=== PATIENT | female | born 1955 | race Caucasian/White ===

== ENCOUNTER 2017-02-08 08:43 | Day surgery (SDC) | payer MEDICARE ==
[2017-02-06 13:08] VITALS: BMI 26.4
[2017-02-08 09:37] VITALS: O2SAT 100
[2017-02-08] MEDS ORDERED: Propofol 10 mg/ml Inj (20 ML) ONE ×2 (09:38→10:29)
[2017-02-08] MEDS ORDERED: Midazolam 2 MG/2 ML VIAL ONE (09:38)
[2017-02-08] MEDS ORDERED: Bupivacaine 0.5% Inj(30mL) ONE (09:41)
[2017-02-08] MEDS ORDERED: Lidocaine 2% Inj (20ml) ONE (09:45)
[2017-02-08] MEDS ORDERED: Lidocaine 2% w Epi 1:100,000 Inj IJ ONE (09:45)
[2017-02-08] MEDS ORDERED: Lactated Ringer's 1,000 ML IV ONE (10:10)
[2017-02-08] MEDS ORDERED: HYDROmorphone 0.5 mg/0.5 ml ISec IVP PRN (10:32)
--- NOTE | 2017-02-08 10:41 | PCM.SURG1 ---
Surgeon's Initial Post Op Note - Surgeon's Notes Surgeon: Dr. Barry Internal Affairs Commander: Dr. Matthews Type of Anesthesia: General Endo, IV Sedation, Local Anesthesia Administered By: anahi Pre-Operative Diagnosis: Ganglion Cyst Left hand Operative Findings: same Post-Operative Diagnosis: same Operation Performed: Excision of ganglion cyst Left hand Specimen/Specimens Removed: ganglion cyst Estimated Blood Loss: EBL {In ML}: 2 Blood Products Given: N/A Drains Used: No Drains Post-Op Condition: Good Date of Surgery/Procedure: 02/08/17 Time of Surgery/Procedure: 10:41
[2017-02-08 14:37] VITALS: BP 145/80; PULSE 84; RESP 12; TEMP 98.3
--- NOTE | 2017-02-09 07:05 | OP ---
DATE: 02/08/2017 PREOPERATIVE DIAGNOSIS: Ganglion cyst, left hand. POSTOPERATIVE DIAGNOSIS: Ganglion cyst, left hand. PROCEDURE PERFORMED: FINDINGS: There is a small tender mass located on the ulnar surface of the left hand at the base of the second and third metatarsal. DESCRIPTION OF PROCEDURE: Under local anesthesia, the patient was prepared and draped in usual sterile fashion. Lidocaine 2% with epinephrine was injected around the area. An incision was made along the distal palmar crease and extended down to the subcutaneous tissue. The underlying ganglion cyst was then excised preventing any injury to the underlying structures as tendon and nerve fibers. The mass was then totally excised to come out in a few pieces because of the extension into a wide area. Bleeding was controlled with pressure and the wound was then closed utilizing multiple interrupted sutures of 4-0 nylon. ESTIMATED BLOOD LOSS: About 2 mL. COMPLICATIONS: None. Leighton Barry MD
== END 2017-02-08 15:01 | disposition home or self-care (01) ==
LOC: C.SDS 08:43
PROVIDERS: ATTEND Surgery
DX: M67.442 Ganglion, left hand (principal)
CPT/HCPCS: 26160; 88304; J1170; J2250; J2704; J3010; J7120

== ENCOUNTER 2017-03-20 15:26 | Emergency (ER) | payer MEDICARE ==
[2017-03-20 15:27] VITALS: BMI 26.4
[2017-03-20 15:43] VITALS: TEMP 97.8
[2017-03-20] MEDS ORDERED: Lidocaine 5% Patch TD STA (16:22)
--- NOTE | 2017-03-20 16:23 | C.PDOC ---
History Of Present Illness 61yo female, past medical history of asthma, anxiety, arthritis, chronic back pain, presents to the ED with complaints of back pain, worse through her thoracic and lumbar regions. Patient reports she took 1 percocet for her pain yesterday with no relief; states she has been unable to sleep due to the pain. She denies any abdominal pain, fever, trauma or fall. She offers no other medical complaints. Time Seen by Provider: 03/20/17 16:01 Chief Complaint (Nursing): Back Pain History Per: Patient History/Exam Limitations: no limitations Onset/Duration Of Symptoms: Persistent Current Symptoms Are (Timing): Still Present Quality Of Discomfort: "Pain" Previous Symptoms: Back Pain, Chronic Pain Past Medical History Reviewed: Historical Data, Nursing Documentation, Vital Signs Vital Signs: Last Vital Signs Temp 97.8 F 03/20/17 15:42 Pulse 95 H 03/20/17 15:42 Resp 20 03/20/17 15:42 BP 117/66 03/20/17 15:42 Pulse Ox 100 03/20/17 16:30 - Medical History PMH: Asthma, Back Problems, COPD, Fibromyalgia, Gastritis, Gastrointestinal Ulcer, Hiatal Hernia, HTN, Hypercholesterolemia, Migraine, Pneumonia Denies: Chronic Kidney Disease Surgical History: Endoscopy - [facility] Procedures EXC LES SOFT TISSUE NEC (11/07/13) LOCAL EXCIS BREAST LES (11/07/13) Family History: States: No Known Family Hx, Unknown Family Hx - Social History Hx Tobacco Use: No Hx Alcohol Use: No Hx Substance Use: No - Immunization History Hx Tetanus Toxoid Vaccination: Yes Hx Influenza Vaccination: Yes Hx Pneumococcal Vaccination: Yes Review Of Systems Constitutional: Negative for: Fever Gastrointestinal: Negative for: Abdominal Pain Musculoskeletal: Positive for: Back Pain Physical Exam - Physical Exam Appears: Non-toxic Back: Paraspinal Tenderness Extremity: Normal ROM Neurological/Psych: Oriented x3, Normal Speech, Normal Cognition ED Course And Treatment O2 Sat by Pulse Oximetry: 100 (RA) Pulse Ox Interpretation: Normal Medical Decision Making Medical Decision Making: Impression: 61yo presents for evaluation of worsening chronic back pain Plan: -- Valium PO, flexeril PO and lidoderm patch Disposition Counseled Patient/Family Regarding: Diagnosis - Disposition Referrals: Daniele Aparicio MD [Staff Provider] - Disposition: HOME/ ROUTINE Disposition Time: 17:37 Condition: STABLE Instructions: Chronic Pain (ED) Forms: General Discharge Instructions - POA Present On Arrival: None - Clinical Impression Clinical Impression: Chronic pain - Scribe Statement The provider has reviewed the documentation as recorded by the Zonia Duque Provider Attestation All medical record entries made by the Zonia were at my direction and personally dictated by me. I have reviewed the chart and agree that the record accurately reflects my personal performance of the history, physical exam, medical decision making, and the department course for this patient. I have also personally directed, reviewed, and agree with the discharge instructions and disposition.
[2017-03-20] MEDS ORDERED: Lidocaine 5% Patch TD ONE (16:29)
[2017-03-20 17:55] VITALS: BP 120/68; RESP 18; O2SAT 97
[2017-03-20 17:56] VITALS: PULSE 81
== END 2017-03-20 17:56 | disposition home or self-care (01) ==
LOC: C.ER 15:26
DX: G89.29 Other chronic pain (principal)

== ENCOUNTER 2017-06-27 17:42 | Inpatient (IN) | payer MEDICARE ==
[2017-06-27 17:42] VITALS: BMI 26.4
--- NOTE | 2017-06-27 20:41 | C.PDOC ---
History Of Present Illness 61 year old female with PMHx of asthma presents to the ED c/o bilateral leg swelling, SOB on exertion and states that she feels like she is wheezing. Patient reports her asthma is well controlled and has not had any episodes lately. Patient saw Dr. Aparicio who sent her here for admission. Patient is speaking in full sentences, she denies any CP, dizziness, lightheadedness, nausea, vomit, fever, chills. Time Seen by Provider: 06/27/17 19:59 Chief Complaint (Nursing): Shortness Of Breath History Per: Patient History/Exam Limitations: no limitations Onset/Duration Of Symptoms: Days Current Symptoms Are (Timing): Still Present Quality: "Pain" Exacerbating Factor(s): Exertion Current Respiratory Medications: See Home Med List Associated Symptoms: Ankle/Leg Swelling Reports Recently: Treated By A Physician (Dr. Aparicio) Recent travel outside of the [place]: No Additional History Per: Patient Past Medical History Reviewed: Historical Data, Nursing Documentation, Vital Signs Vital Signs: Last Vital Signs Temp 97.8 F 06/27/17 18:17 Pulse 89 06/27/17 23:37 Resp 18 06/27/17 23:37 BP 130/75 06/27/17 23:37 Pulse Ox 99 06/27/17 23:37 - Medical History PMH: Asthma, Back Problems, COPD, Fibromyalgia, Gastritis, Gastrointestinal Ulcer, Hiatal Hernia, HTN, Hypercholesterolemia, Migraine, Pneumonia Denies: Chronic Kidney Disease Surgical History: Endoscopy - [facility] Procedures EXC LES SOFT TISSUE NEC (11/07/13) LOCAL EXCIS BREAST LES (11/07/13) Family History: States: Unknown Family Hx - Social History Hx Tobacco Use: No Hx Alcohol Use: No Hx Substance Use: No - Immunization History Hx Tetanus Toxoid Vaccination: No Hx Influenza Vaccination: Yes Hx Pneumococcal Vaccination: Yes Review Of Systems Constitutional: Negative for: Fever, Chills Cardiovascular: Negative for: Chest Pain Respiratory: Positive for: SOB with Excertion. Negative for: Cough Gastrointestinal: Negative for: Nausea, Vomiting, Abdominal Pain Musculoskeletal: Positive for: Leg Pain (Swelling) Skin: Negative for: Rash Neurological: Negative for: Weakness, Numbness, Headache Physical Exam - Physical Exam Appears: Non-toxic, No Acute Distress Skin: Normal Color, Warm, Dry Head: Atraumatic, Normacephalic Eye(s): bilateral: Normal Inspection Nose: No Discharge, No Deformity Oral Mucosa: Moist Neck: Normal ROM, Supple Chest: Symmetrical Cardiovascular: Rhythm Regular, No Murmur Respiratory: Wheezing (diffuse inspiratoiry and expiratory ), Other (high pitch squeezing sounds) Gastrointestinal/Abdominal: Soft, No Tenderness, No Guarding, No Rebound Extremity: Normal ROM, No Pedal Edema, No Calf Tenderness, Capillary Refill (< 2 seconds), No Deformity, Swelling (+1 pitting edema) Pulses: Left Dorsalis Pedis: Normal, Right Dorsalis Pedis: Normal Neurological/Psych: Oriented x3, Normal Speech, Normal Cognition Gait: Steady ED Course And Treatment - Laboratory Results Result Diagrams: 06/27/17 21:33 06/27/17 21:33 Lab Interpretation: Abnormal (WBC 11.2 with normal diff, BNP and Troponin normal , BUN 18, Cr 0.6,) ECG: Interpreted By Ct ECG Rhythm: Sinus Rhythm ECG Interpretation: Normal O2 Sat by Pulse Oximetry: 97 (On RA) Pulse Ox Interpretation: Normal - Radiology CXR: Interpreted by Me CXR Interpretation: Yes: Other (bilateral atelectasis vs early infiltrate) - CT Scan/US Chest Other Rad Studies (CT/US): Read By Radiologist, Radiology Report Reviewed CT/US Interpretation: FINDINGS: No aortic aneurysm. No pleural or pericardial effussions. There are small scattered hazy opacities w associated small areas of consolidation in the right mid. lung (images 64-69), the lingula (image 74 through 75) and the left lower lung. A few small mediastinal lymph nodes are noted. No gross abnormalities in the upper abdomen. IMPRESSION: Small scattered hazy opacities/consolidation likely at least partially atelectatic in etiology. Superimposed developing acute infectious/inflammatory process would be possible. Followup is. recommended to ensure complete resolution and exclude underlying developing lesions. Reevaluation Time: 23:20 Reassessment Condition: Improved - Physician Consult Information Time Consulting Physician Contacted: 23:26 Physician Contacted: Daniele Aparicio Outcome Of Conversation: Case referred to Dr Cantu who agrees to accept patient for admission. Medical Decision Making Medical Decision Making: Impression : B/L leg swelling, SOB on exertion Plan: * EKG * Labs * CXR * UA Disposition - Disposition Disposition: HOSPITALIZED Disposition Time: 23:51 Condition: IMPROVED - POA Present On Arrival: None - Clinical Impression Clinical Impression: Asthma exacerbation, Lower respiratory infection (e.g., bronchitis, pneumonia, pneumonitis, pulmonitis) - Scribe Statement The provider has reviewed the documentation as recorded by the Scribe Klaus Nicholson All medical record entries made by the Scribe were at my direction and personally dictated by me. I have reviewed the chart and agree that the record accurately reflects my personal performance of the history, physical exam, medical decision making, and the department course for this patient. I have also personally directed, reviewed, and agree with the discharge instructions and disposition.
[2017-06-27 21:16] LABS: SQUAMOUS EPITHIAL 1 /hpf (0-5); URINE BACTERIA OCC (<OCC); URINE BILIRUBIN NEGATIVE (NEGATIVE); URINE BLOOD NEGATIVE (NEGATIVE); URINE CALCIUM OXALATE CRYSTALS FEW /hpf (<OCC); URINE CLARITY Clear (Clear); URINE COLOR Yellow (YELLOW); URINE GLUCOSE (UA) NORMAL (Normal); URINE LEUKOCYTE ESTERASE 1+ Leu/uL (Negative); URINE NITRATE NEGATIVE (NEGATIVE); URINE PROTEIN NEGATIVE (NEGATIVE)
[2017-06-27 22:01] LABS: CALCIUM 8.7 mg/dl (8.6-10.4); GFR AFRICAN-AMERICAN > 60; GFR NON-AFRICAN AMERICAN > 60
[2017-06-27 22:02] LABS: BASO # 0.1 K/uL (0.0-0.2); BASO % 0.6 % (0.0-2.0); EOS # 0.6 K/uL (0.0-0.7); EOS % 5.2 % (0.0-4.0); LYMPH # 2.9 K/uL (1.0-4.3); LYMPH % 26.1 % (20.0-40.0); MEAN CELL VOLUME 86.7 fL (81.0-99.0); MEAN CORPUSCULAR HEMOGLOBIN 28.1 pg (27.0-31.0); MEAN CORPUSCULAR HGB CONC 32.4 g/dL (33.0-37.0); MEAN PLATELET VOLUME 9.2 fL (7.2-11.7); MONO # 1.1 K/uL (0.0-0.8); MONO % 9.9 % (0.0-10.0); NEUT # 6.5 K/uL (1.8-7.0); NEUT % 58.2 % (50.0-75.0); RBC 3.91 Mil/uL (3.80-5.20); RED CELL DISTRIBUTION WIDTH 16.6 % (11.5-14.5); WHITE BLOOD COUNT 11.2 K/uL (4.8-10.8)
[2017-06-27 22:03] LABS: ALB/GLOB RATIO 1.1 (1.0-2.1); ALBUMIN 3.8 g/dL (3.5-5.0); ALT/SGPT 12 U/L (9-52); AST/SGOT 26 U/L (14-36); BLOOD UREA NITROGEN 18 mg/dL (7-17)
[2017-06-27 22:08] LABS: B-TYPE NATRIURETIC PEPTIDE 61.6 pg/mL (0-900)
--- NOTE | 2017-06-27 23:14 | CT ---
EXAM: CT Chest Without Intravenous Contrast EXAM DATE/TIME: 06/27/2017 9:26 PM CLINICAL HISTORY: 61 years old, female; Signs and symptoms; Shortness of breath; Additional info: SOB with hilar fullness TECHNIQUE: Axial computed tomography images of the chest without intravenous contrast. All CT scans at this facility use one or more dose reduction techniques, viz.: automated exposure control; ma/kV adjustment per patient size (including targeted exams where dose is matched to indication; i.e. head); or iterative reconstruction technique. Coronal and sagittal reformatted images were created and reviewed. COMPARISON: No relevant prior studies available. FINDINGS: No aortic aneurysm. No pleural or pericardial effussions. There are small scattered hazy opacities w associated small areas of consolidation in the right mid lung (images 64-69), the lingula (image 74 through 75) and the left lower lung. A few small mediastinal lymph nodes are noted. No gross abnormalities in the upper abdomen. IMPRESSION: Small scattered hazy opacities/consolidation likely at least partially atelectatic in etiology. Superimposed developing acute infectious/inflammatory process would be possible. Followup is recommended to ensure complete resolution and exclude underlying developing lesions.
[2017-06-28] MEDS ORDERED: Azithromycin 500 MG in Sodium Chloride 0.9% 250 ML IVPB STA (00:14)
[2017-06-28] MEDS ORDERED: Oxycodone/Acetaminophen 5/325 mg Tab PO PRN (00:43)
[2017-06-28] MEDS ORDERED: [UNRECOGNIZED DRUG - OTHER] SC PRN ×2 (00:43→10:59)
[2017-06-28] MEDS ORDERED: Oxycodone/Acetaminophen 5/325 mg Tab ONE (02:25)
[2017-06-28] MEDS ORDERED: Albuterol 0.083% Inhal Sol (2.5 mg/3 mL) UD ONE (02:32)
[2017-06-28] MEDS: Albuterol 0.083% Inhal Sol (2.5 mg/3 mL) UD INH SCH ×4 (02:33→20:20)
[2017-06-28] MEDS ORDERED: Fluticasone-Salmeterol 250-50mcg Diskus IH SCH ×2 (08:00→10:00)
--- NOTE | 2017-06-28 08:48 | RAD ---
Chest x-ray single frontal view History: Shortness of breath. Comparison: 11/14/2014 Findings: Increased markings at the left lung base suggestive for atelectasis. Tortuous ectatic aorta. Heart size normal limits. Degenerative changes in the spine and shoulders. Impression Increased markings at the left lung base suggestive for atelectasis. Tortuous ectatic aorta.
[2017-06-28] MEDS: Enoxaparin 30 mg Syringe SC SCH (09:47)
--- NOTE | 2017-06-28 12:49 | CARD ---
APPROVED REPORT EKG Measurement Heart [id number] <Conclusion> Normal sinus rhythm Normal ECG
--- NOTE | 2017-06-28 17:34 | CP.PCM.CON ---
History of Present Illness - History of Present Illness History of Present Illness: Pt is 61 year old female with PMHx of asthma, chronic back pain, HTN, peptic ulcer, gastritis, hiatal hernia admitted on 06/27/17 for asthma exacerbation and possible lower respiratory infection. Pt reports one week of persistent wheezing , shortness of breath and cough. Symptoms worsened with exertion and change in weather. No improvement with use of rescue inhaler and nebulizer treatments at home. Pt became alarmed when she developed leg swelling, which she never had previously, and was sent to the ED by Dr. Aparicio. Today, is in NAD. SpO2 is 98% on room air. Afebrile. Pt states she is feeling much better after albuterol treatments, however there is still continued wheezing and dry cough. Bilateral leg swelling has improved as well, but not resolved. Pt denies chest pain, hemoptysis, fever and chills. PMHx- Asthma, chronic back pain, HTN, peptic ulcer, gastritis, hiatal hernia PSHx- Rhytidectomy, Bilateral knee surgeries, L elbow surgery Meds: albuterol, advair 2 puffs daily, montelukast 10mg PO daily, percocet 5/ 325 1 tab PO Q6H PRN, Xanax 5mg PRN, Zolpidem 10mg QHS PRN Allergies-acetaminophen, aminophylline, aspirin, lasix, latex, gatifloxacin, levofloxacin, iodine, PCN, sulfa, propoxyphene, seafood. Family Hx: father-renal failure, grandmother- colon cancer 90 years old, aunt- breast cancer at 40 years old Social: Denies tobacco, alcohol and drug use. Hospitalization: States she was treated in the ICU and intubated 20 years ago. Exam: lungs: diffuse expiratory wheeze extremities: bilateral lower extremity swelling R>L A/P: Asthma exacerbation Continue nebulizer treatments Start IV steroid Follow up ABG Follow up Echo 06/27/17 Eosinophil %: 5.2 Possible PNA Start antibiotics 06/27/17 CXR: increased markins at left lung base suggestive for atelectasis. Tortuous ectatic aorta. 06/27/17 CT chest: small scattered hazy opacities/consolidation likely at least partically atelectasis. Superimposed developing acute infeciton/inflammatory process would be possible. follow up recommended 06/27/17 WBC: 11.2 Past Patient History - Past Medical History & Family History Past Medical History?: Yes - Past Social History Smoking Status: Never Smoked - CARDIAC Hx Hypercholesterolemia: Yes Hx Hypertension: Yes - PULMONARY Hx Asthma: Yes Hx Chronic Obstructive Pulmonary Disease (COPD): Yes Hx Pneumonia: Yes - NEUROLOGICAL Hx Migraine: Yes - HEENT Hx HEENT Problems: No - RENAL Hx Chronic Kidney Disease: No - ENDOCRINE/METABOLIC Hx Endocrine Disorders: No - HEMATOLOGICAL/ONCOLOGICAL Hx Blood Disorders: No - INTEGUMENTARY Hx Dermatological Problems: Yes Other/Comment: MULTIPLE LESIONS CHEST AREA. 05/24/15 Ganglion Cyst, left hand. HX: GANGLION CYST LEFT HAND. (from previous triage) - MUSCULOSKELETAL/RHEUMATOLOGICAL Hx Musculoskeletal Disorders: Yes Hx Back Pain: Yes Hx Degenerative Joint Disease: Yes Hx Falls: No Hx Osteoarthritis: Yes (back neck) Other/Comment: HX: DJD-LEFT KNEE. HX: DJD RIGHT KNEE. HX: TENDONITIS LEFT ELBOW - GASTROINTESTINAL Hx Gastritis: Yes - GENITOURINARY/GYNECOLOGICAL Hx Genitourinary Disorders: No - PSYCHIATRIC Hx Substance Use: No - SURGICAL HISTORY Hx Surgeries: Yes Hx Arthroscopy: Yes (left knee) Hx Joint Replacement: Yes (right total) Hx Musculoskeletal Surgery: Yes (HX: SURGERY FOR TENDONITIS LEFT ELBOWleft knee) Hx Orthopedic Surgery: Yes Other/Comment: EXC MASS LEFT CHEST BACK THIGH. HX: LEFT PARTIAL KNEE REPLACEMENT. HX: RIGHT TOTAL KNEE REPLACEMENT - ANESTHESIA Hx Anesthesia: Yes Hx Anesthesia Reactions: No Hx Malignant Hyperthermia: No Has any member of the family had a problem w/ anesthesia?: No Meds Allergies/Adverse Reactions: Allergies Allergy/AdvReac Type Severity Reaction Status Date / Time acetaminophen Allergy Severe RASH Verified 06/27/17 18:20 [From Darvocet-N] aminophylline Allergy Severe HIVES Verified 06/27/17 18:20 aspirin Allergy Severe HIVES Verified 06/27/17 18:20 furosemide Allergy Severe HIVES Verified 06/27/17 18:20 gatifloxacin [From Tequin] Allergy Severe HIVES Verified 06/27/17 18:20 iodine Allergy Severe HIVES Verified 06/27/17 18:20 latex Allergy Severe HIVES Verified 06/27/17 18:20 levofloxacin [From Levaquin] Allergy Severe HIVES Verified 06/27/17 18:20 Penicillins Allergy Severe HIVES Verified 06/27/17 18:20 propoxyphene Allergy Severe RASH Verified 06/27/17 18:20 [From Darvocet-N] Sulfa (Sulfonamide Allergy Severe HIVES Verified 06/27/17 18:20 Antibiotics) SEAFOOD Allergy Severe HIVES Uncoded 03/20/17 16:23 TEQUIN Allergy Severe HIVES Uncoded 03/20/17 16:23 - Medications Medications: Current Medications Albuterol Sulfate (Albuterol 0.083% Inhal Rayna (2.5 Mg/3 Ml) Ud) 2.5 mg INH RQ6 [facility] Last Admin: 06/28/17 13:31 Dose: 2.5 mg Enoxaparin Sodium (Lovenox) 30 mg SC DAILY [facility] Last Admin: 06/28/17 09:47 Dose: 30 mg Montelukast Sodium (Singulair) 10 mg PO DAILY [facility] Last Admin: 06/28/17 09:47 Dose: 10 mg Oxycodone/Acetaminophen (Percocet 5/325 Mg Tab) 1 tab PO Q6 PRN PRN Reason: Pain, moderate (4-7) Stop: 07/01/17 00:44 Last Admin: 06/28/17 02:25 Dose: 1 tab Fluticasone/Salmeterol (Advair Diskus 250/50) 1 puff IH RQ12 [facility] Last Admin: 06/28/17 11:15 Dose: 1 puff Zolpidem Tartrate (Ambien) 5 mg PO HS PRN PRN Reason: Insomnia Results - Vital Signs Recent Vital Signs: Last Vital Signs Temp 97.4 F L 06/28/17 06:00 Pulse 66 06/28/17 06:00 Resp 19 06/28/17 06:00 BP 123/74 06/28/17 06:00 Pulse Ox 98 06/28/17 06:00 - Labs Result Diagrams: 06/27/17 21:33 06/27/17 21:33 Labs: Laboratory Results - last 24 hr 06/27/17 06/27/17 06/27/17 21:00 21:33 21:33 WBC 11.2 H RBC 3.91 Hgb 11.0 Hct 33.9 L MCV 86.7 D MCH 28.1 MCHC 32.4 L RDW 16.6 H Plt Count 391 MPV 9.2 Neut % (Auto) 58.2 Lymph % (Auto) 26.1 [place] % (Auto) 9.9 Eos % (Auto) 5.2 H Baso % (Auto) 0.6 Neut # 6.5 Lymph # 2.9 [place] # 1.1 H Eos # 0.6 Baso # 0.1 Sodium 135 Potassium 4.2 Chloride 102 Carbon Dioxide 27 Anion Gap 9 L BUN 18 H Creatinine 0.6 L Est GFR ( Amer) > 60 Est GFR (Non-Af Amer) > 60 Random Glucose 97 Calcium 8.7 Total Bilirubin 0.7 AST 26 ALT 12 Alkaline Phosphatase 104 Troponin I < 0.0120 NT-Pro-B Natriuret Pep 61.6 Total Protein 7.2 Albumin 3.8 Globulin 3.4 Albumin/Globulin Ratio 1.1 Urine Color Yellow Urine Clarity Clear Urine pH 5.0 Ur Specific [place] 1.025 Urine Protein Negative Urine Glucose (UA) Normal Urine Ketones Negative Urine Blood Negative Urine Nitrate Negative Urine Bilirubin Negative Urine Urobilinogen 2.0 H Ur Leukocyte Esterase 1+ H Urine WBC (Auto) 21 H Urine RBC (Auto) 2 Ur Squamous Epith Cells 1 Calcium Oxalate Crystal Few H Urine Bacteria Occ H
--- NOTE | 2017-06-28 18:16 | CP.PCM.HP ---
History of Present Illness - History of Present Illness History of Present Illness: 61 year old female admitted on 06/27/17 for asthma exacerbation and possible lower respiratory infection. She reports one week of persistent wheezing, shortness of breath and cough as well as leg swelling Admitted to ICU for pneumonia, status asthmaticus possible CHF PMHx- Asthma, chronic back pain, HTN, peptic ulcer, gastritis, hiatal hernia PSHx- Rhytidectomy, Bilateral knee surgeries, L elbow surgery Meds: albuterol, advair 2 puffs daily, montelukast 10mg PO daily, percocet 5/ 325 1 tab PO Q6H PRN, Xanax 5mg PRN, Zolpidem 10mg QHS PRN Allergies-acetaminophen, aminophylline, aspirin, lasix, latex, gatifloxacin, levofloxacin, iodine, PCN, sulfa, propoxyphene, seafood. Family Hx: father-renal failure, grandmother- colon cancer 90 years old, aunt- breast cancer at 40 years old Social: Denies tobacco, alcohol and drug use. Hospitalization: States she was treated in the ICU and intubated 20 years ago. Present on Admission - Present on Admission Any Indicators Present on Admission: No History of DVT/PE: No History of Uncontrolled Diabetes: No Urinary Catheter: No Decubitus Ulcer Present: No History Surgical Site Infection Following: None Review of Systems - Constitutional Constitutional: As Per HPI, Anorexia, Chills. absent: Headache - EENT Eyes: absent: As Per HPI, Blind Spots, Blurred Vision, Change in Vision, Decreased Night Vision, Diplopia, Discharge, Dry Eye, Exophthalmos, Floaters, Irritation, Itchy Eyes, Loss of Peripheral Vision, Pain, Photophobia, Requires Corrective Lenses, Sees Flashes, Spots in Vision, Tunnel Vision, Other Visual Disturbances, Loss of Vision, Other Ears: absent: As Per HPI, Decreased Hearing, Ear Discharge, Ear Pain, Tinnitus, Abnormal Hearing, Disequilibrium, Dizziness, Other Nose/Mouth/Throat: absent: As Per HPI, Epistaxis, Nasal Congestion, Nasal Discharge, Nasal Obstruction, Nasal Trauma, Nose Pain, Post Nasal Drip, Sinus Pain, Sinus Pressure, Bleeding Gums, Change in Voice, Dental Pain, Dry Mouth, Dysphagia, Halitosis, Hoarsness, Lip Swelling, Mouth Lesions, Mouth Pain, Odynophagia, Sore Throat, Throat Swelling, Tongue Swelling, Facial Pain, Neck Pain, Neck Mass, Other - Breasts Breasts: absent: As Per HPI, Change in Shape, Mass, Pain, Nipple Discharge, Nipple Inversion, Skin Changes, Swelling, Other - Cardiovascular Cardiovascular: As Per HPI, Pedal Edema - Respiratory Respiratory: As Per HPI, Cough, Dyspnea. absent: Hemoptysis - Gastrointestinal Gastrointestinal: absent: As Per HPI, Abdominal Pain, Belching, Bloating, Change in Bowel Habits, Change in Stool Character, Coffee Ground Emesis, Constipation, Cramping, Diarrhea, Dyspepsia, Dysphagia, Early Satiety, Excessive Flatus, Fecal Incontinence, Heartburn, Hematemesis, Hematochezia, Loose Stools, Melena, Nausea, Odynophagia, Temesmus, Vomiting, Other - Genitourinary Genitourinary: absent: As Per HPI, Change in Urinary Stream, Difficulty Urinating, Dysuria, Flank Pain, Hematuria, Pyuria, Nocturia, Urinary Incontinence, Urinary Frequency, Urinary Hesitance, Urinary Urgency, Voiding Freq/Small Amts, Freq UTI, Hx Renal/Bladder Calculi, Hx /Renal Surgery, Bladder Distension, Other - Reproductive: Female Reproductive:Female: absent: As Per HPI, Amenorrhea, Amenorrhea/ Control, Currently Menstual, Cycle <21 Days, Cycle >35 Days, Cycle Variable, Menses 1-7 Days, Menses >/= 8 Days, Menses Variable, Cycle > 4 Weeks Between, No Menses for 6 Months, Heavy Menses, Light Menses, Normal Menses, Spotting Between Cycles , S/P Hysterectomy, Menopausal, Post Menopausal, Premenarche, Abnormal Vaginal Bleeding, Dysmenorrhea, Dyspareunia, Genital Lesions, Genital Pruritis, Pelvic Pain, Prolapse Symptoms, Sexual Dysfunction, Vaginal Discharge, Vaginal Dryness , Vaginal Odor, Vaginal Pruritis, Other - Menstruation Menstruation: absent: As Per HPI, Amenorrhea, Amenorrhea/ Control, Currently Menstual, Cycle <21 Days, Cycle >35 Days, Cycle Variable, Menses 1-7 Days, Menses >/= 8 Days, Menses Variable, Cycle > 4 Weeks Between, No Menses for 6 Months, Heavy Menses, Light Menses, Normal Menses, Spotting Between Cycles , S/P Hysterectomy, Menopausal, Post Menopausal, Premenarche, Abnormal Vaginal Bleeding, Dysmenorrhea, Other - Musculoskeletal Musculoskeletal: As Per HPI - Integumentary Integumentary: As Per HPI - Neurological Neurological: absent: As Per HPI, Abnormal Gait, Abnormal Hearing, Abnormal Movements, Abnormal Speech, Behavioral Changes, Burning Sensations, Confusion, Convulsions, Disequilibrium, Dizziness, Numbness, Focal Weakness, Frequent Falls , Headaches, Lack of Coordination, Loss of Vision, Memory Loss, Paresthesias, Radicular Pain, Restless Legs, Sensory Deficit, Syncope, Tingling, Tremor, Vertigo, Weakness, Other Visual Disturbances, Other - Psychiatric Psychiatric: absent: As Per HPI, Abnormal Sleep Pattern, Anhedonia, Anxiety, Auditory Hallucinations, Behavioral Changes, Change in Appetite, Change in Libido, Confusion, Depression, Difficulty Concentrating, Hallucinations, Homicidal Ideation, Hopelessness, Irritability, Memory Loss, Mood Swings, Panic Attacks, Paranoia, Suicidal Ideation, Visual Hallucinations, Tactile Hallucinations, Other - Endocrine Endocrine: absent: As Per HPI, Change in Body Appearance, Change in Libido, Cold Intolorance, Deepening of Voice, Excessive Sweating, Fatigue, Flushing, Heat Intolorance, Increase in Ring/Shoe/Hat Size, Palpitations, Polydipsia, Polyphagia, Polyuria, Other - Hematologic/Lymphatic Hematologic: absent: As Per HPI, Easy Bleeding, Easy Bruising, Lymphadenopathy, Other Past Patient History - Past Medical History & Family History Past Medical History?: Yes - Past Social History Smoking Status: Never Smoked - CARDIAC Hx Hypercholesterolemia: Yes Hx Hypertension: Yes - PULMONARY Hx Asthma: Yes Hx Chronic Obstructive Pulmonary Disease (COPD): Yes Hx Pneumonia: Yes - NEUROLOGICAL Hx Migraine: Yes - HEENT Hx HEENT Problems: No - RENAL Hx Chronic Kidney Disease: No - ENDOCRINE/METABOLIC Hx Endocrine Disorders: No - HEMATOLOGICAL/ONCOLOGICAL Hx Blood Disorders: No - INTEGUMENTARY Hx Dermatological Problems: Yes Other/Comment: MULTIPLE LESIONS CHEST AREA. 05/24/15 Ganglion Cyst, left hand. HX: GANGLION CYST LEFT HAND. (from previous triage) - MUSCULOSKELETAL/RHEUMATOLOGICAL Hx Musculoskeletal Disorders: Yes Hx Back Pain: Yes Hx Degenerative Joint Disease: Yes Hx Falls: No Hx Osteoarthritis: Yes (back neck) Other/Comment: HX: DJD-LEFT KNEE. HX: DJD RIGHT KNEE. HX: TENDONITIS LEFT ELBOW - GASTROINTESTINAL Hx Gastritis: Yes - GENITOURINARY/GYNECOLOGICAL Hx Genitourinary Disorders: No - PSYCHIATRIC Hx Substance Use: No - SURGICAL HISTORY Hx Surgeries: Yes Hx Arthroscopy: Yes (left knee) Hx Joint Replacement: Yes (right total) Hx Musculoskeletal Surgery: Yes (HX: SURGERY FOR TENDONITIS LEFT ELBOWleft knee) Hx Orthopedic Surgery: Yes Other/Comment: EXC MASS LEFT CHEST BACK THIGH. HX: LEFT PARTIAL KNEE REPLACEMENT. HX: RIGHT TOTAL KNEE REPLACEMENT - ANESTHESIA Hx Anesthesia: Yes Hx Anesthesia Reactions: No Hx Malignant Hyperthermia: No Has any member of the family had a problem w/ anesthesia?: No Meds Allergies/Adverse Reactions: Allergies Allergy/AdvReac Type Severity Reaction Status Date / Time acetaminophen Allergy Severe RASH Verified 06/27/17 18:20 [From Darvocet-N] aminophylline Allergy Severe HIVES Verified 06/27/17 18:20 aspirin Allergy Severe HIVES Verified 06/27/17 18:20 furosemide Allergy Severe HIVES Verified 06/27/17 18:20 gatifloxacin [From Tequin] Allergy Severe HIVES Verified 06/27/17 18:20 iodine Allergy Severe HIVES Verified 06/27/17 18:20 latex Allergy Severe HIVES Verified 06/27/17 18:20 levofloxacin [From Levaquin] Allergy Severe HIVES Verified 06/27/17 18:20 Penicillins Allergy Severe HIVES Verified 06/27/17 18:20 propoxyphene Allergy Severe RASH Verified 06/27/17 18:20 [From Darvocet-N] Sulfa (Sulfonamide Allergy Severe HIVES Verified 06/27/17 18:20 Antibiotics) SEAFOOD Allergy Severe HIVES Uncoded 03/20/17 16:23 TEQUIN Allergy Severe HIVES Uncoded 03/20/17 16:23 Physical Exam - Constitutional Appears: No Acute Distress - Head Exam Head Exam: ATRAUMATIC, NORMOCEPHALIC - Eye Exam Eye Exam: PERRL. absent: Scleral icterus - ENT Exam ENT Exam: Mucous Membranes Dry, Normal External Ear Exam - Neck Exam Neck exam: Negative for: Lymphadenopathy - Respiratory Exam Respiratory Exam: Decreased Breath Sounds, Rales, Rhonchi, Wheezes - Cardiovascular Exam Cardiovascular Exam: REGULAR RHYTHM, +S1, +S2 - GI/Abdominal Exam GI & Abdominal Exam: Diminished Bowel Sounds, Soft. absent: Tenderness - Rectal Exam Rectal Exam: Deferred - Exam Exam: NORMAL INSPECTION - Extremities Exam Extremities exam: Positive for: pedal pulses present. Negative for: calf tenderness, pedal edema, tenderness - Back Exam Back exam: absent: CVA tenderness (L), CVA tenderness (R) - Neurological Exam Neurological exam: Alert, CN II-XII Intact, Oriented x3, Reflexes Normal - Psychiatric Exam Psychiatric exam: Normal Mood - Skin Skin Exam: Dry Results - Vital Signs Recent Vital Signs: Last Vital Signs Temp 97.4 F L 06/28/17 06:00 Pulse 66 06/28/17 06:00 Resp 19 06/28/17 06:00 BP 123/74 06/28/17 06:00 Pulse Ox 98 06/28/17 06:00 - Labs Result Diagrams: 06/27/17 21:33 06/27/17 21:33 Labs: Laboratory Results - last 24 hr 06/27/17 06/27/17 06/27/17 21:00 21:33 21:33 WBC 11.2 H RBC 3.91 Hgb 11.0 Hct 33.9 L MCV 86.7 D MCH 28.1 MCHC 32.4 L RDW 16.6 H Plt Count 391 MPV 9.2 Neut % (Auto) 58.2 Lymph % (Auto) 26.1 Ralls % (Auto) 9.9 Eos % (Auto) 5.2 H Baso % (Auto) 0.6 Neut # 6.5 Lymph # 2.9 Ralls # 1.1 H Eos # 0.6 Baso # 0.1 Sodium 135 Potassium 4.2 Chloride 102 Carbon Dioxide 27 Anion Gap 9 L BUN 18 H Creatinine 0.6 L Est GFR ( Amer) > 60 Est GFR (Non-Af Amer) > 60 Random Glucose 97 Calcium 8.7 Total Bilirubin 0.7 AST 26 ALT 12 Alkaline Phosphatase 104 Troponin I < 0.0120 NT-Pro-B Natriuret Pep 61.6 Total Protein 7.2 Albumin 3.8 Globulin 3.4 Albumin/Globulin Ratio 1.1 Urine Color Yellow Urine Clarity Clear Urine pH 5.0 Ur Specific [place] 1.025 Urine Protein Negative Urine Glucose (UA) Normal Urine Ketones Negative Urine Blood Negative Urine Nitrate Negative Urine Bilirubin Negative Urine Urobilinogen 2.0 H Ur Leukocyte Esterase 1+ H Urine WBC (Auto) 21 H Urine RBC (Auto) 2 Ur Squamous Epith Cells 1 Calcium Oxalate Crystal Few H Urine Bacteria Occ H Assessment & Plan (1) Asthma exacerbation Status: Acute (2) Lower respiratory infection (e.g., bronchitis, pneumonia, pneumonitis, pulmonitis) Status: Acute (3) Asthma Status: Acute (4) Cervical radiculopathy Status: Acute (5) Chronic pain Status: Acute - Assessment and Plan (Free Text) Assessment: check cultures cont IV rx Decision To Admit - Pt Status Changed To: Hospital Disposition Of: Inpatient - Admit Certification Admit to Inpatient:: After my assessment, the patient will require hospitalization for at least two midnights. This is because of the severity of symptoms shown, intensity of services needed, and/or the medical risk in this patient being treated as an outpatient. - InPatient: Physician Admission Certification:: pt needs acute care admission - . Bed Request Type: ICU
--- NOTE | 2017-06-28 18:36 | CP.PCM.PN ---
Subjective - Date & Time of Evaluation Date of Evaluation: 06/28/17 Time of Evaluation: 09:00 - Subjective Subjective: still whezing legs swollen no chest pain DR dash on board Objective - Vital Signs/Intake and Output Vital Signs (last 24 hours): Temp Pulse Resp BP Pulse Ox 97.4 F L 66 19 123/74 98 06/28/17 06:00 06/28/17 06:00 06/28/17 06:00 06/28/17 06:00 06/28/17 06:00 - Medications Medications: Current Medications Albuterol Sulfate (Albuterol 0.083% Inhal Rayna (2.5 Mg/3 Ml) Ud) 2.5 mg INH RQ6 [facility] Last Admin: 06/28/17 13:31 Dose: 2.5 mg Enoxaparin Sodium (Lovenox) 30 mg SC DAILY [facility] Last Admin: 06/28/17 09:47 Dose: 30 mg Azithromycin 500 mg/ Sodium (Chloride) 250 mls @ 250 mls/hr IVPB Q24H [facility] Methylprednisolone (Solu-Medrol) 40 mg IVP Q8 [facility] Montelukast Sodium (Singulair) 10 mg PO DAILY [facility] Last Admin: 06/28/17 09:47 Dose: 10 mg Oxycodone/Acetaminophen (Percocet 5/325 Mg Tab) 1 tab PO Q6 PRN PRN Reason: Pain, moderate (4-7) Stop: 07/01/17 00:44 Last Admin: 06/28/17 02:25 Dose: 1 tab Zolpidem Tartrate (Ambien) 5 mg PO HS PRN PRN Reason: Insomnia - Labs Labs: 06/27/17 21:33 06/27/17 21:33 - Constitutional Appears: Non-toxic, Chronically Ill - Head Exam Head Exam: NORMOCEPHALIC - Eye Exam Eye Exam: PERRL - ENT Exam ENT Exam: Mucous Membranes Dry - Neck Exam Neck Exam: absent: Lymphadenopathy - Respiratory Exam Respiratory Exam: Decreased Breath Sounds - Cardiovascular Exam Cardiovascular Exam: REGULAR RHYTHM - GI/Abdominal Exam GI & Abdominal Exam: Distended, Soft - Rectal Exam Rectal Exam: Deferred - Exam Exam: NORMAL INSPECTION Assessment and Plan (1) Asthma exacerbation Status: Acute (2) Lower respiratory infection (e.g., bronchitis, pneumonia, pneumonitis, pulmonitis) Status: Acute (3) Asthma Status: Acute (4) Cervical radiculopathy Status: Acute (5) Chronic pain Status: Acute
[2017-06-28] MEDS: MethylPREDNISolone 40 mg Vial IVP SCH ×2 (18:38→22:00)
[2017-06-28] MEDS: Azithromycin 500 MG in Sodium Chloride 0.9% 250 ML IVPB SCH (20:32)
--- NOTE | 2017-06-28 22:21 | CP.PCM.CON ---
History of Present Illness - History of Present Illness History of Present Illness: CC: sob leg swelling HPI: 61 year old female admitted on 06/27/17 for asthma exacerbation and possible lower respiratory infection. She reports one week of persistent wheezing, shortness of breath and cough as well as leg swelling Pt was admitted to ICU and was treated with Abtx and bronchodilators. CXR - +atelectasis and possible pneumonia. pro-BNP 61 Trops negative Review of Systems - Constitutional Constitutional: Excessive Sweating, Fever, Weight Gain - EENT Eyes: absent: Change in Vision, Discharge Nose/Mouth/Throat: Nose Pain, Sore Throat. absent: Nasal Discharge - Cardiovascular Cardiovascular: Chest Pain - Respiratory Respiratory: Dyspnea on Exertion, Wheezing - Gastrointestinal Gastrointestinal: absent: Abdominal Pain, Excessive Flatus, Heartburn - Neurological Neurological: absent: Dizziness, Focal Weakness Past Patient History - Past Medical History & Family History Past Medical History?: Yes - Past Social History Smoking Status: Never Smoked - CARDIAC Hx Hypercholesterolemia: Yes Hx Hypertension: Yes - PULMONARY Hx Asthma: Yes Hx Chronic Obstructive Pulmonary Disease (COPD): Yes Hx Pneumonia: Yes - NEUROLOGICAL Hx Migraine: Yes - HEENT Hx HEENT Problems: No - RENAL Hx Chronic Kidney Disease: No - ENDOCRINE/METABOLIC Hx Endocrine Disorders: No - HEMATOLOGICAL/ONCOLOGICAL Hx Blood Disorders: No - INTEGUMENTARY Hx Dermatological Problems: Yes Other/Comment: MULTIPLE LESIONS CHEST AREA. 05/24/15 Ganglion Cyst, left hand. HX: GANGLION CYST LEFT HAND. (from previous triage) - MUSCULOSKELETAL/RHEUMATOLOGICAL Hx Musculoskeletal Disorders: Yes Hx Back Pain: Yes Hx Degenerative Joint Disease: Yes Hx Falls: No Hx Osteoarthritis: Yes (back neck) Other/Comment: HX: DJD-LEFT KNEE. HX: DJD RIGHT KNEE. HX: TENDONITIS LEFT ELBOW - GASTROINTESTINAL Hx Gastritis: Yes - GENITOURINARY/GYNECOLOGICAL Hx Genitourinary Disorders: No - PSYCHIATRIC Hx Substance Use: No - SURGICAL HISTORY Hx Surgeries: Yes Hx Arthroscopy: Yes (left knee) Hx Joint Replacement: Yes (right total) Hx Musculoskeletal Surgery: Yes (HX: SURGERY FOR TENDONITIS LEFT ELBOWleft knee) Hx Orthopedic Surgery: Yes Other/Comment: EXC MASS LEFT CHEST BACK THIGH. HX: LEFT PARTIAL KNEE REPLACEMENT. HX: RIGHT TOTAL KNEE REPLACEMENT - ANESTHESIA Hx Anesthesia: Yes Hx Anesthesia Reactions: No Hx Malignant Hyperthermia: No Has any member of the family had a problem w/ anesthesia?: No Meds Allergies/Adverse Reactions: Allergies Allergy/AdvReac Type Severity Reaction Status Date / Time acetaminophen Allergy Severe RASH Verified 06/27/17 18:20 [From Darvocet-N] aminophylline Allergy Severe HIVES Verified 06/27/17 18:20 aspirin Allergy Severe HIVES Verified 06/27/17 18:20 furosemide Allergy Severe HIVES Verified 06/27/17 18:20 gatifloxacin [From Tequin] Allergy Severe HIVES Verified 06/27/17 18:20 iodine Allergy Severe HIVES Verified 06/27/17 18:20 latex Allergy Severe HIVES Verified 06/27/17 18:20 levofloxacin [From Levaquin] Allergy Severe HIVES Verified 06/27/17 18:20 Penicillins Allergy Severe HIVES Verified 06/27/17 18:20 propoxyphene Allergy Severe RASH Verified 06/27/17 18:20 [From Darvocet-N] Sulfa (Sulfonamide Allergy Severe HIVES Verified 06/27/17 18:20 Antibiotics) SEAFOOD Allergy Severe HIVES Uncoded 03/20/17 16:23 TEQUIN Allergy Severe HIVES Uncoded 03/20/17 16:23 - Medications Medications: Current Medications Albuterol Sulfate (Albuterol 0.083% Inhal Rayna (2.5 Mg/3 Ml) Ud) 2.5 mg INH RQ6 [facility] Last Admin: 06/28/17 20:20 Dose: 2.5 mg Enoxaparin Sodium (Lovenox) 30 mg SC DAILY [facility] Last Admin: 06/28/17 09:47 Dose: 30 mg Azithromycin 500 mg/ Sodium (Chloride) 250 mls @ 250 mls/hr IVPB Q24H [facility] Last Admin: 06/28/17 20:32 Dose: 250 mls/hr Methylprednisolone (Solu-Medrol) 40 mg IVP Q8 [facility] Last Admin: 06/28/17 18:38 Dose: 40 mg Montelukast Sodium (Singulair) 10 mg PO DAILY [facility] Last Admin: 06/28/17 09:47 Dose: 10 mg Oxycodone/Acetaminophen (Percocet 5/325 Mg Tab) 1 tab PO Q6 PRN PRN Reason: Pain, moderate (4-7) Stop: 07/01/17 00:44 Last Admin: 06/28/17 02:25 Dose: 1 tab Zolpidem Tartrate (Ambien) 5 mg PO HS PRN PRN Reason: Insomnia Physical Exam - Head Exam Head Exam: NORMAL INSPECTION - Eye Exam Eye Exam: absent: Scleral icterus - ENT Exam ENT Exam: Mucous Membranes Dry - Neck Exam Neck exam: Positive for: Full Rom - Respiratory Exam Respiratory Exam: Decreased Breath Sounds, Prolonged Expiratory Phase, Rhonchi, Wheezes - Cardiovascular Exam Cardiovascular Exam: REGULAR RHYTHM. absent: Systolic Murmur - GI/Abdominal Exam GI & Abdominal Exam: Soft - Extremities Exam Extremities exam: Positive for: pedal edema. Negative for: calf tenderness - Neurological Exam Neurological exam: Alert, Oriented x3 Results - Vital Signs Recent Vital Signs: Last Vital Signs Temp 98.1 F 06/28/17 22:00 Pulse 96 H 06/28/17 22:00 Resp 19 06/28/17 22:00 BP 110/57 L 06/28/17 22:00 Pulse Ox 98 06/28/17 22:00 - Labs Result Diagrams: 06/27/17 21:33 06/27/17 21:33 Assessment & Plan - Assessment and Plan (Free Text) Assessment: Exacerbation of asthma Pneumonia Chest pain - most likely pleuritic in nature Doubt CHF Plan: Agree with bronchodilators Abtx as per ID ECHO - Date & Time Date: 06/28/17 Time: 09:05
[2017-06-29] MEDS: Albuterol 0.083% Inhal Sol (2.5 mg/3 mL) UD INH SCH ×4 (01:35→19:51)
[2017-06-29] MEDS: MethylPREDNISolone 40 mg Vial IVP SCH ×3 (05:57→22:01)
[2017-06-29 09:51] LABS: HEMOGLOBIN 12.7 g/dL (11.0-16.0); MEAN CELL VOLUME 86.4 fL (81.0-99.0); MEAN CORPUSCULAR HGB CONC 33.5 g/dL (33.0-37.0); MEAN PLATELET VOLUME 8.8 fL (7.2-11.7); RBC 4.39 Mil/uL (3.80-5.20); RED CELL DISTRIBUTION WIDTH 17.1 % (11.5-14.5); WHITE BLOOD COUNT 12.1 K/uL (4.8-10.8)
[2017-06-29] MEDS: Enoxaparin 30 mg Syringe SC SCH (10:11)
[2017-06-29 10:15] LABS: BLOOD UREA NITROGEN 11 mg/dL (7-17); CALCIUM 9.6 mg/dl (8.6-10.4); GFR AFRICAN-AMERICAN > 60; GFR NON-AFRICAN AMERICAN > 60
--- NOTE | 2017-06-29 14:02 | CP.PCM.PN ---
Subjective - Date & Time of Evaluation Date of Evaluation: 06/29/17 Time of Evaluation: 11:30 - Subjective Subjective: patient seen and examined Breathing and swelling of legs improving Afebrile No chest pain Objective - Vital Signs/Intake and Output Vital Signs (last 24 hours): Temp Pulse Resp BP Pulse Ox 98.7 F 105 H 19 128/74 99 06/29/17 12:00 06/29/17 12:00 06/29/17 12:00 06/29/17 12:00 06/29/17 12:00 Intake and Output: 06/29/17 06/29/17 06:59 18:59 Intake Total 200 560 Output Total 600 300 Balance -400 260 - Medications Medications: Current Medications Albuterol Sulfate (Albuterol 0.083% Inhal Rayna (2.5 Mg/3 Ml) Ud) 2.5 mg INH RQ6 [facility] Last Admin: 06/29/17 13:30 Dose: 2.5 mg Enoxaparin Sodium (Lovenox) 30 mg SC DAILY [facility] Last Admin: 06/29/17 10:11 Dose: 30 mg Azithromycin 500 mg/ Sodium (Chloride) 250 mls @ 250 mls/hr IVPB Q24H [facility] Last Admin: 06/28/17 20:32 Dose: 250 mls/hr Methylprednisolone (Solu-Medrol) 40 mg IVP Q8 [facility] Last Admin: 06/29/17 13:42 Dose: 40 mg Montelukast Sodium (Singulair) 10 mg PO DAILY [facility] Last Admin: 06/29/17 10:11 Dose: 10 mg Oxycodone/Acetaminophen (Percocet 5/325 Mg Tab) 1 tab PO Q6 PRN PRN Reason: Pain, moderate (4-7) Stop: 07/01/17 00:44 Last Admin: 06/28/17 02:25 Dose: 1 tab Zolpidem Tartrate (Ambien) 5 mg PO HS PRN PRN Reason: Insomnia - Labs Labs: 06/29/17 09:44 06/29/17 09:44 - Head Exam Head Exam: ATRAUMATIC, NORMOCEPHALIC - Eye Exam Eye Exam: Normal appearance - ENT Exam ENT Exam: Mucous Membranes Moist - Neck Exam Neck Exam: Normal Inspection - Respiratory Exam Respiratory Exam: Rales - Cardiovascular Exam Cardiovascular Exam: REGULAR RHYTHM - GI/Abdominal Exam GI & Abdominal Exam: Soft, Normal Bowel Sounds - Extremities Exam Extremities Exam: Pedal Edema - Neurological Exam Neurological Exam: Alert, Oriented x3 Assessment and Plan (1) Asthma exacerbation Assessment & Plan: Continue IV steroids and nebulizer treatment Status: Acute (2) Lower respiratory infection (e.g., bronchitis, pneumonia, pneumonitis, pulmonitis) Assessment & Plan: Continue azithromycin Check pro calcitonin level Status: Acute
[2017-06-29] MEDS: Azithromycin 500 MG in Sodium Chloride 0.9% 250 ML IVPB SCH (18:32)
--- NOTE | 2017-06-29 18:34 | CP.PCM.PN ---
Subjective - Date & Time of Evaluation Date of Evaluation: 06/29/17 Time of Evaluation: 10:00 - Subjective Subjective: less sob no fever awake alert denies chest pain Objective - Vital Signs/Intake and Output Vital Signs (last 24 hours): Temp Pulse Resp BP Pulse Ox 98.6 F 104 H 18 139/84 100 06/29/17 16:00 06/29/17 16:00 06/29/17 16:00 06/29/17 16:00 06/29/17 16:00 Intake and Output: 06/29/17 06/29/17 06:59 18:59 Intake Total 200 560 Output Total 600 300 Balance -400 260 - Medications Medications: Current Medications Albuterol Sulfate (Albuterol 0.083% Inhal Rayna (2.5 Mg/3 Ml) Ud) 2.5 mg INH RQ6 [facility] Last Admin: 06/29/17 13:30 Dose: 2.5 mg Enoxaparin Sodium (Lovenox) 30 mg SC DAILY [facility] Last Admin: 06/29/17 10:11 Dose: 30 mg Azithromycin 500 mg/ Sodium (Chloride) 250 mls @ 250 mls/hr IVPB Q24H [facility] Last Admin: 06/28/17 20:32 Dose: 250 mls/hr Methylprednisolone (Solu-Medrol) 40 mg IVP Q8 [facility] Last Admin: 06/29/17 13:42 Dose: 40 mg Montelukast Sodium (Singulair) 10 mg PO DAILY [facility] Last Admin: 06/29/17 10:11 Dose: 10 mg Oxycodone/Acetaminophen (Percocet 5/325 Mg Tab) 1 tab PO Q6 PRN PRN Reason: Pain, moderate (4-7) Stop: 07/01/17 00:44 Last Admin: 06/28/17 02:25 Dose: 1 tab Zolpidem Tartrate (Ambien) 5 mg PO HS PRN PRN Reason: Insomnia - Labs Labs: 06/29/17 09:44 06/29/17 09:44 - Constitutional Appears: Non-toxic, Chronically Ill - Head Exam Head Exam: NORMOCEPHALIC - Eye Exam Eye Exam: PERRL - ENT Exam ENT Exam: Mucous Membranes Dry - Neck Exam Neck Exam: absent: Lymphadenopathy - Respiratory Exam Respiratory Exam: Decreased Breath Sounds, Rales - Cardiovascular Exam Cardiovascular Exam: REGULAR RHYTHM, +S1, +S2 - GI/Abdominal Exam GI & Abdominal Exam: Distended, Soft. absent: Tenderness - Rectal Exam Rectal Exam: Deferred - Exam Exam: NORMAL INSPECTION - Extremities Exam Extremities Exam: Pedal Edema. absent: Calf Tenderness, Tenderness - Back Exam Back Exam: absent: CVA tenderness (L), CVA tenderness (R) - Neurological Exam Neurological Exam: Alert, Awake, Oriented x3 Neuro motor strength exam: Left Upper Extremity: 5, Right Upper Extremity: 5, Left Lower Extremity: 5, Right Lower Extremity: 5 - Psychiatric Exam Psychiatric exam: Normal Mood - Skin Skin Exam: Dry Assessment and Plan (1) Asthma exacerbation Status: Acute (2) Lower respiratory infection (e.g., bronchitis, pneumonia, pneumonitis, pulmonitis) Status: Acute (3) Asthma Status: Acute (4) Cervical radiculopathy Status: Acute (5) Chronic pain Status: Acute - Assessment and Plan (Free Text) Assessment: cont iv rx cardiology folllow up Dr Aparicio await echo report
[2017-06-30] MEDS: Albuterol 0.083% Inhal Sol (2.5 mg/3 mL) UD INH SCH ×3 (01:31→14:41)
[2017-06-30] MEDS: MethylPREDNISolone 40 mg Vial IVP SCH (06:12)
[2017-06-30 06:38] VITALS: BP 148/88; RESP 18; TEMP 97.9; O2SAT 98
--- NOTE | 2017-06-30 09:38 | CP.PCM.PN ---
Subjective - Date & Time of Evaluation Date of Evaluation: 06/29/17 Time of Evaluation: 09:00 - Subjective Subjective: improving no chest pain no sob Objective - Vital Signs/Intake and Output Vital Signs (last 24 hours): Temp Pulse Resp BP Pulse Ox 97.9 F 68 18 148/88 98 06/30/17 06:00 06/30/17 06:00 06/30/17 06:00 06/30/17 06:00 06/30/17 06:00 Intake and Output: 06/30/17 06/30/17 06:59 18:59 Intake Total 700 Output Total 600 Balance 100 - Medications Medications: Current Medications Albuterol Sulfate (Albuterol 0.083% Inhal Rayna (2.5 Mg/3 Ml) Ud) 2.5 mg INH RQ6 [facility] Last Admin: 06/30/17 07:45 Dose: 2.5 mg Enoxaparin Sodium (Lovenox) 30 mg SC DAILY [facility] Last Admin: 06/29/17 10:11 Dose: 30 mg Azithromycin 500 mg/ Sodium (Chloride) 250 mls @ 250 mls/hr IVPB Q24H [facility] Last Admin: 06/29/17 18:32 Dose: 250 mls/hr Methylprednisolone (Solu-Medrol) 40 mg IVP Q8 [facility] Last Admin: 06/30/17 06:12 Dose: 40 mg Montelukast Sodium (Singulair) 10 mg PO DAILY [facility] Last Admin: 06/29/17 10:11 Dose: 10 mg Oxycodone/Acetaminophen (Percocet 5/325 Mg Tab) 1 tab PO Q6 PRN PRN Reason: Pain, moderate (4-7) Stop: 07/01/17 00:44 Last Admin: 06/28/17 02:25 Dose: 1 tab Zolpidem Tartrate (Ambien) 5 mg PO HS PRN PRN Reason: Insomnia - Labs Labs: 06/29/17 09:44 06/29/17 09:44 - Constitutional Appears: Non-toxic - Eye Exam Eye Exam: absent: Scleral icterus - ENT Exam ENT Exam: Mucous Membranes Moist - Neck Exam Neck Exam: Full ROM - Respiratory Exam Respiratory Exam: Rales, Wheezes - Cardiovascular Exam Cardiovascular Exam: REGULAR RHYTHM - GI/Abdominal Exam GI & Abdominal Exam: Soft - Extremities Exam Extremities Exam: Full ROM, Pedal Edema Assessment and Plan - Assessment and Plan (Free Text) Assessment: Asthma Pneumonia Chronic low back pain Plan: Cont abtx Cont nebulizer treatment
[2017-06-30] MEDS: Enoxaparin 30 mg Syringe SC SCH (10:43)
--- NOTE | 2017-06-30 13:00 | RAD ---
Chest x-ray single frontal view History: Follow-up. Comparison: 06/27/2017 Findings: Mild venous congestion. Mild patchy increased markings at the left lung base. Tortuous aorta. Right paratracheal airspace opacity. Mild cardiomegaly. Impression : Mild venous congestion. Mild patchy increased markings at the left lung base. Tortuous aorta. Right paratracheal airspace opacity. Mild cardiomegaly.
--- NOTE | 2017-06-30 13:12 | CP.PCM.PN ---
Subjective - Date & Time of Evaluation Date of Evaluation: 06/30/17 Time of Evaluation: 10:30 - Subjective Subjective: feelin a lot better minimal cough Objective - Vital Signs/Intake and Output Vital Signs (last 24 hours): Temp Pulse Resp BP Pulse Ox 97.9 F 68 18 148/88 98 06/30/17 06:00 06/30/17 06:00 06/30/17 06:00 06/30/17 06:00 06/30/17 06:00 Intake and Output: 06/30/17 06/30/17 06:59 18:59 Intake Total 700 Output Total 600 Balance 100 - Medications Medications: Current Medications Albuterol Sulfate (Albuterol 0.083% Inhal Rayna (2.5 Mg/3 Ml) Ud) 2.5 mg INH RQ6 [facility] Last Admin: 06/30/17 07:45 Dose: 2.5 mg Enoxaparin Sodium (Lovenox) 30 mg SC DAILY [facility] Last Admin: 06/30/17 10:43 Dose: 30 mg Azithromycin 500 mg/ Sodium (Chloride) 250 mls @ 250 mls/hr IVPB Q24H [facility] Last Admin: 06/29/17 18:32 Dose: 250 mls/hr Methylprednisolone (Solu-Medrol) 40 mg IVP Q8 [facility] Last Admin: 06/30/17 06:12 Dose: 40 mg Montelukast Sodium (Singulair) 10 mg PO DAILY [facility] Last Admin: 06/30/17 10:43 Dose: 10 mg Oxycodone/Acetaminophen (Percocet 5/325 Mg Tab) 1 tab PO Q6 PRN PRN Reason: Pain, moderate (4-7) Stop: 07/01/17 00:44 Last Admin: 06/28/17 02:25 Dose: 1 tab Zolpidem Tartrate (Ambien) 5 mg PO HS PRN PRN Reason: Insomnia - Labs Labs: 06/29/17 09:44 06/29/17 09:44 - Constitutional Appears: Non-toxic - Eye Exam Eye Exam: absent: Scleral icterus - Neck Exam Neck Exam: Full ROM - Respiratory Exam Respiratory Exam: Decreased Breath Sounds, Rales, NORMAL BREATHING PATTERN - Cardiovascular Exam Cardiovascular Exam: REGULAR RHYTHM - Extremities Exam Extremities Exam: absent: Pedal Edema - Neurological Exam Neurological Exam: Alert, Oriented x3 Assessment and Plan - Assessment and Plan (Free Text) Assessment: Asthma Pneumonia Chronic low back pain Plan: follow up CXR - if pneumonia resolves, ok to DC.
--- NOTE | 2017-06-30 15:04 | CP.PCM.PN ---
Subjective - Date & Time of Evaluation Date of Evaluation: 06/30/17 Time of Evaluation: 11:30 - Subjective Subjective: The patient seen and examined Sitting comfortably in no acute distress Breathing and cough much improved Afebrile No chest pain Less swelling of legs Objective - Vital Signs/Intake and Output Vital Signs (last 24 hours): Temp Pulse Resp BP Pulse Ox 97.9 F 68 18 148/88 98 06/30/17 06:00 06/30/17 06:00 06/30/17 06:00 06/30/17 06:00 06/30/17 06:00 Intake and Output: 06/30/17 06/30/17 06:59 18:59 Intake Total 700 Output Total 600 Balance 100 - Medications Medications: Current Medications Albuterol Sulfate (Albuterol 0.083% Inhal Rayna (2.5 Mg/3 Ml) Ud) 2.5 mg INH RQ6 [facility] Last Admin: 06/30/17 14:41 Dose: 2.5 mg Enoxaparin Sodium (Lovenox) 30 mg SC DAILY [facility] Last Admin: 06/30/17 10:43 Dose: 30 mg Azithromycin 500 mg/ Sodium (Chloride) 250 mls @ 250 mls/hr IVPB Q24H [facility] Last Admin: 06/29/17 18:32 Dose: 250 mls/hr Methylprednisolone (Solu-Medrol) 40 mg IVP Q8 [facility] Last Admin: 06/30/17 06:12 Dose: 40 mg Montelukast Sodium (Singulair) 10 mg PO DAILY [facility] Last Admin: 06/30/17 10:43 Dose: 10 mg Oxycodone/Acetaminophen (Percocet 5/325 Mg Tab) 1 tab PO Q6 PRN PRN Reason: Pain, moderate (4-7) Stop: 07/01/17 00:44 Last Admin: 06/28/17 02:25 Dose: 1 tab Zolpidem Tartrate (Ambien) 5 mg PO HS PRN PRN Reason: Insomnia - Labs Labs: 06/29/17 09:44 06/29/17 09:44 - Head Exam Head Exam: ATRAUMATIC, NORMOCEPHALIC - Eye Exam Eye Exam: Normal appearance - ENT Exam ENT Exam: Mucous Membranes Moist - Respiratory Exam Respiratory Exam: Clear to Ausculation Bilateral - Cardiovascular Exam Cardiovascular Exam: REGULAR RHYTHM - GI/Abdominal Exam GI & Abdominal Exam: Soft, Normal Bowel Sounds Assessment and Plan (1) Asthma exacerbation Assessment & Plan: okay to discharge home on p.o. prednisone, rescue inhaler and antibiotics Status: Acute (2) Lower respiratory infection (e.g., bronchitis, pneumonia, pneumonitis, pulmonitis) Status: Acute
[2017-06-30 16:08] VITALS: PULSE 74
--- NOTE | 2017-06-30 20:09 | CARD ---
APPROVED REPORT EXAM: Two-dimensional and M-mode echocardiogram with Doppler and color Doppler. Other Information Quality : GoodRhythm : INDICATION Dyspnea 2D DIMENSIONS IVSd0.9 (0.7-1.1cm)LVDd4.4 (3.9-5.9cm) PWd0.9 (0.7-1.1cm)LVDs3.0 (2.5-4.0cm) FS (%) 32.2 %LVEF (%)60.6 (>50%) M-Mode DIMENSIONS Left Atrium (MM)3.82 (2.5-4.0cm)Aortic Root3.00 (2.2-3.7cm) Aortic Cusp Exc.1.99 (1.5-2.0cm) Mitral Valve MV E Uzmjuroq66.5cm/sMV A Fbksjtzs785.4cm/sE/A ratio0.8 TDI E/Lateral E'0.0E/Medial E'0.0 Tricuspid Valve TR Peak [id number]/sTR Peak [id number] LEFT VENTRICLE The left ventricle is normal size. There is normal left ventricular wall thickness. Left ventricle systolic function is normal. The Ejection Fraction is 60-65%. There is normal LV segmental wall motion. Tissue Doppler imaging reveals abnormal left ventricular diastolic dysfunction. RIGHT VENTRICLE The right ventricle is normal size. There is normal right ventricular wall thickness. The right ventricular systolic function is normal. ATRIA The left atrium size is normal. The right atrium size is normal. The interatrial septum is intact with no evidence for an atrial septal defect. AORTIC VALVE The aortic valve is normal in structure. There is mild aortic regurgitation. There is no aortic valvular stenosis. There is no aortic valvular vegetation. MITRAL VALVE The mitral valve is normal in structure. There is no evidence of mitral valve prolapse. There is no mitral valve stenosis. There is no mitral valve regurgitation noted. TRICUSPID VALVE The tricuspid valve is normal in structure. There is mild tricuspid regurgitation. Right ventricular systolic pressure is estimated at 30-40 mmHg. There is mild pulmonary hypertension. PULMONIC VALVE The pulmonic valve is not well visualized. There is no pulmonic valvular regurgitation. GREAT VESSELS The aortic root is normal in size. PERICARDIAL EFFUSION There is no significant pericardial effusion. <Conclusion> Left ventricle systolic function is normal. The Ejection Fraction is 60-65%. Diastolic dysfunction. There is mild aortic regurgitation. There is no mitral valve regurgitation noted. There is mild tricuspid regurgitation. There is mild pulmonary hypertension. There is no pulmonic valvular regurgitation.
== END 2017-06-30 15:59 | disposition home or self-care (01) | DRG 194 ==
LOC: C.ER 17:42 → C.9E 23:53 → C.9I 06-28 01:25
PROVIDERS: ADMIT Internal Medicine; ATTEND Internal Medicine
DX: J18.9 Pneumonia, unspecified organism (principal); J45.901 Unspecified asthma with (acute) exacerbation; J44.0 Chronic obstructive pulmonary disease with (acute) lower respiratory infection; E78.00 Pure hypercholesterolemia, unspecified; G89.29 Other chronic pain; I10 Essential (primary) hypertension; M54.12 Radiculopathy, cervical region; Z87.01 Personal history of pneumonia (recurrent); Z87.11 Personal history of peptic ulcer disease; Z96.651 Presence of right artificial knee joint

== ENCOUNTER 2018-01-25 17:00 | Emergency (ER) | payer MEDICARE ==
[2018-01-25 17:00] VITALS: BMI 26.4
--- NOTE | 2018-01-25 17:28 | C.PDOC ---
History Of Present Illness 62 year old female with a history of asthma presents to the emergency department with complaints of an allergic reaction which began last night. Patient states that she has a history of multiple allergies to "many things". She reports feeling a generalized itch and tingling with no relief after using Benadryl last night. She states that her symptoms have persisted today. She also complains of throat discomfort but denies shortness of breath or wheezing. Time Seen by Provider: 01/25/18 17:26 Chief Complaint (Nursing): Allergic Reaction History Per: Patient History/Exam Limitations: no limitations Onset/Duration Of Symptoms: Days (1) Current Symptoms Are (Timing): Still Present Possible Cause: Unknown (multiple allergies) Associated Symptoms: Itching, Other (tingling in skin, throat discomfort) Home/EMS Treatment: Benadryl (no relief ) Past Medical History Reviewed: Historical Data, Nursing Documentation, Vital Signs Vital Signs: Last Vital Signs Temp 98.3 F 01/25/18 17:14 Pulse 95 H 01/25/18 17:14 Resp 18 01/25/18 17:14 BP 138/84 01/25/18 17:14 Pulse Ox 99 01/25/18 18:39 - Medical History PMH: Asthma, Back Problems, COPD, Fibromyalgia, Gastritis, Gastrointestinal Ulcer, Hiatal Hernia, HTN, Hypercholesterolemia, Migraine, Pneumonia Denies: Chronic Kidney Disease Surgical History: Endoscopy - [facility] Procedures EXC LES SOFT TISSUE NEC (11/07/13) LOCAL EXCIS BREAST LES (11/07/13) Family History: States: No Known Family Hx - Social History Hx Tobacco Use: No Hx Alcohol Use: No Hx Substance Use: No - Immunization History Hx Tetanus Toxoid Vaccination: No Hx Influenza Vaccination: Yes Hx Pneumococcal Vaccination: Yes Review Of Systems Except As Marked, All Systems Reviewed And Found Negative. ENT: Positive for: Throat Pain (discomfort) Respiratory: Negative for: Shortness of Breath, Wheezing Skin: Positive for: Other (itching, tingling) Physical Exam - Physical Exam Appears: Non-toxic, In Acute Distress (anxious but consolable) Skin: Warm, Dry, No Other (angioedema) Head: Atraumatic, Normacephalic Eye(s): bilateral: Normal Inspection Nose: Normal Oral Mucosa: Moist Throat: Normal, No Erythema, No Exudate Neck: Normal, Supple Chest: Symmetrical Cardiovascular: Rhythm Regular, No Murmur Respiratory: Normal Breath Sounds, No Rales, No Rhonchi, No Wheezing Neurological/Psych: Oriented x3, Normal Speech, Normal Cognition ED Course And Treatment O2 Sat by Pulse Oximetry: 99 (RA) Pulse Ox Interpretation: Normal Progress Note: Plan: Benadryl 50mg IVP. Pepcid 20mg IVP. Solu-Medrol 80mg IVP Progress - Re-Evaluation Re-evaluation Note: 01/25/18 18:19 NARD APPEARS COMFORTABLE - Data Reviewed Data Reviewed: Old records Disposition Counseled Patient/Family Regarding: Diagnosis, Need For Followup - Disposition Disposition: HOME/ ROUTINE Disposition Time: 19:00 Condition: IMPROVED Prescriptions: predniSONE [Prednisone] 60 mg PO DAILY #12 tab Instructions: Amna (DC) Forms: [facility] (H[place]ian) - Clinical Impression Clinical Impression: Allergic urticaria - Scribe Statement The provider has reviewed the documentation as recorded by the Scribe (Edwardo [email or web address]) Provider Attestation: All medical record entries made by the Scribe were at my direction and personally dictated by me. I have reviewed the chart and agree that the record accurately reflects my personal performance of the history, physical exam, medical decision making, and the department course for this patient. I have also personally directed, reviewed, and agree with the discharge instructions and disposition.
[2018-01-25] MEDS ORDERED: DiphenhydrAMINE 50 mg/ml Inj IVP STA (17:29)
[2018-01-25] MEDS ORDERED: MethylPREDNISolone 40 mg Vial IVP STA (17:29)
[2018-01-25] MEDS ORDERED: MethylPREDNISolone 40 mg Vial ONE (17:51)
[2018-01-25] MEDS ORDERED: DiphenhydrAMINE 50 mg/ml Inj ONE (18:11)
[2018-01-25 19:01] VITALS: BP 136/87; PULSE 85; RESP 16; TEMP 98.7; O2SAT 100
== END 2018-01-25 19:01 | disposition home or self-care (01) ==
LOC: C.ER 17:00
DX: L50.0 Allergic urticaria (principal); I10 Essential (primary) hypertension; E78.00 Pure hypercholesterolemia, unspecified; M79.7 Fibromyalgia
CPT/HCPCS: 96374; 96375; 99284; J1200; J2920